=== PATIENT | male | born 1940 | race Hispanic/Latino ===

== ENCOUNTER 2018-08-15 21:49 | Emergency (ER) | payer MEDICARE, BC ==
[2018-08-15 22:01] VITALS: BP 193/70; PULSE 83; RESP 20; TEMP 97.9; O2SAT 95
--- NOTE | 2018-08-15 22:16 | C.PDOC ---
History Of Present Illness Patient presents to ED with complaints of right eye pain, redness irritation and tearing for the past few hours. He states he feels pain when blinking. Patient has macular degeneration and received an injection of Eylea to the eye by Dr Matthias Fitzgerald in [place] today. Patient has received these injections in the past. He states he has had similar reactions in the past and was seen in this ED and given drops to use. Denies any headache, dizziness, nausea, vomiting, numbness or weakness. Time Seen by Provider: 08/15/18 21:56 Chief Complaint (Nursing): Eye Problem History Per: Patient History/Exam Limitations: no limitations Onset/Duration Of Symptoms: Hrs Current Symptoms Are (Timing): Still Present Injury To Eye?: No Associated Symptoms: Pain, Other (Redness, Irritation) Recent travel outside of the [place] States: No Past Medical History Reviewed: Historical Data, Nursing Documentation, Vital Signs Vital Signs: Last Vital Signs Temp 97.9 F 08/15/18 21:57 Pulse 83 08/15/18 21:57 Resp 20 08/15/18 21:57 BP 193/70 H 08/15/18 21:57 Pulse Ox 95 08/15/18 21:57 - Medical History PMH: COPD, Emphysema, Gall Bladder Disease, HTN, Hypercholesterolemia Denies: Chronic Kidney Disease Surgical History: Cholecystectomy - [facility] Procedures ENDOSC POLYPECTOMY OF LG INTEST (06/04/14) Family History: States: Unknown Family Hx - Social History Hx Alcohol Use: No Hx Substance Use: No - Immunization History Hx Tetanus Toxoid Vaccination: No Hx Influenza Vaccination: No Review Of Systems Constitutional: Negative for: Fever, Chills Eyes: Positive for: Pain, Redness, Other (Irritation) Physical Exam - Physical Exam Appears: Non-toxic Skin: Normal Color, Warm, Dry Head: Atraumatic, Normacephalic Eye(s): bilateral: PERRL, EOMI, right: Other (Diffuse conjunctival injection, Tearing), left: Normal Inspection Oral Mucosa: Moist ED Course And Treatment O2 Sat by Pulse Oximetry: 95 (room air) Pulse Ox Interpretation: Normal Medical Decision Making Medical Decision Making: Patient with history of macular degeneration and recent eye injection few hours ago. Eye exam shows tearing and conjunctival injection. No uptake with fluoroscein stain. [id number] personal development educator MACHELLE Valladares [id number] Valladares who reports if there is no abrasion, recommends lubricate eye every hour with refresh or other drops. Can follow up with eye doctor tomorrow. Patient remained well in no acute distress. Discuss the plan for discharge and he understands and will follow up Disposition Counseled Patient/Family Regarding: Diagnosis, Need For Followup, Rx Given - Disposition Referrals: Casey Wei [Other] Disposition: HOME/ ROUTINE Disposition Time: 22:27 Condition: GOOD Additional Instructions: Lubricate eye every hour while awake and follow up with eye doctor tomorrow Prescriptions: Carboxymethylcellulos/Glycerin [Optive 0.5%-0.9% 15 ml] 1 drop OD Q1 #1 sang Instructions: Artificial Tears Forms: [employer] (Panamanian) - POA Present On Arrival: None - Clinical Impression Clinical Impression: Pain in eye - PA / GRANTS ASSISTANT / Resident Statement MD/DO has reviewed & agrees with the documentation as recorded. - Scribe Statement The provider has reviewed the documentation as recorded by the Scribneftali Selby All medical record entries made by the Isaiibneftali were at my direction and personally dictated by me. I have reviewed the chart and agree that the record accurately reflects my personal performance of the history, physical exam, medical decision making, and the department course for this patient. I have also personally directed, reviewed, and agree with the discharge instructions and disposition.
== END 2018-08-15 22:46 | disposition home or self-care (01) ==
LOC: C.ER 21:49
DX: H57.11 Ocular pain, right eye (principal); E78.00 Pure hypercholesterolemia, unspecified; I10 Essential (primary) hypertension

== ENCOUNTER 2018-10-03 19:38 | Emergency (ER) | payer MEDICARE, BC ==
[2018-10-03 19:52] VITALS: RESP 20
[2018-10-03] MEDS ORDERED: Fluorescein 1 mg Ophthalmic Strip ONE (19:58)
--- NOTE | 2018-10-03 19:58 | C.PDOC ---
History Of Present Illness 77 year old male presents to the ED for evaluation of severe right eye pain which began earlier today. Patient has history of macular degeneration and received an injection of Eyelea to the right eye at 1330 this afternoon. Patient has history of similar reaction after receiving the injection and was found to have a corneal abrasion in the past. He has been evaluated in the ED previously for the same. Patient denies vision change, headache, dizziness, and extremity numbness/weakness at this time. Time Seen by Provider: 10/03/18 19:48 Chief Complaint (Nursing): Eye Problem History Per: Patient History/Exam Limitations: no limitations Onset/Duration Of Symptoms: Hrs Current Symptoms Are (Timing): Still Present Quality: "Pain" Associated Symptoms: Pain Additional History Per: Patient Past Medical History Reviewed: Historical Data, Nursing Documentation, Vital Signs Vital Signs: Last Vital Signs Temp 97.4 F L 10/03/18 19:43 Pulse 90 10/03/18 19:43 Resp 20 10/03/18 19:43 BP 134/80 10/03/18 19:43 Pulse Ox 97 10/03/18 19:43 - Medical History PMH: COPD, Emphysema, Gall Bladder Disease, HTN, Hypercholesterolemia Denies: Chronic Kidney Disease Surgical History: Cholecystectomy - [facility] Procedures ENDOSC POLYPECTOMY OF LG INTEST (06/04/14) Family History: States: Unknown Family Hx - Social History Hx Alcohol Use: No Hx Substance Use: No - Immunization History Hx Tetanus Toxoid Vaccination: No Hx Influenza Vaccination: No Review Of Systems ENT: Positive for: Ear Pain (right) Neurological: Negative for: Weakness, Numbness, Headache, Dizziness Physical Exam - Physical Exam Appears: Non-toxic, No Acute Distress Skin: Normal Color, Warm, Dry Head: Atraumatic, Normacephalic Eye(s): bilateral: PERRL, EOMI, right: Other (eye patch removed: patient with normal visual acuity. eye appears injected with cloudy discharge and subconjunctival hemorrhage superior to the pupil ), left: Normal Inspection Oral Mucosa: Moist Neck: Supple Chest: Symmetrical, No Deformity Cardiovascular: Rhythm Regular Respiratory: No Accessory Muscle Use Extremity: Normal ROM Neurological/Psych: Oriented x3, Normal Speech, Normal Cognition Gait: Steady ED Course And Treatment O2 Sat by Pulse Oximetry: 97 (on RA ) Pulse Ox Interpretation: Normal Progress Note: Eye anesthetized with tetracaine drops. Right eye was fluorescein stained with faint, hazey uptake across mid-cornea. Bacitracin OD administered. 20:04 Case discussed with [facility] on-call doctor. - Physician Consult Information Time Consulting Physician Contacted: 20:33 Outcome Of Conversation: Case discussed with Dr Sandoval from [facility]. Patient to apply Bacitracinophthalmic ointment to the eye several times a day for 5 days and should follow up as an out patient. Disposition Counseled Patient/Family Regarding: Studies Performed, Diagnosis, Need For Followup, Rx Given - Disposition Disposition: HOME/ ROUTINE Disposition Time: 20:35 Condition: STABLE Additional Instructions: Follow up with your crystal grinder Dr Latif in the office in 1-2 days. Instructions: Age-Related Macular Degeneration, Corneal Abrasion Forms: [employer] (Amharic) - Clinical Impression Clinical Impression: Corneal abrasion, Macular degeneration - Scribe Statement The provider has reviewed the documentation as recorded by the Scribe (Deepa Cullen) Provider Attestation: All medical record entries made by the Scribe were at my direction and personally dictated by me. I have reviewed the chart and agree that the record accurately reflects my personal performance of the history, physical exam, medical decision making, and the department course for this patient. I have also personally directed, reviewed, and agree with the discharge instructions and disposition.
[2018-10-03] MEDS ORDERED: Tetracaine 0.5% Ophth (OR ONLY) ONE (20:01)
[2018-10-03] MEDS ORDERED: Bacitracin Opht OINT 3.5GM OD STA (20:06)
[2018-10-03 20:47] VITALS: BP 132/70; PULSE 87; TEMP 98; O2SAT 99
== END 2018-10-03 20:46 | disposition home or self-care (01) ==
LOC: C.ER 19:38
DX: S05.01XA Injury of conjunctiva and corneal abrasion without foreign body, right eye, initial encounter (principal); X58.XXXA Exposure to other specified factors, initial encounter; H35.30 Unspecified macular degeneration